=== PATIENT | female | born 1980 | race Caucasian/White ===

== ENCOUNTER → 2016-11-28 09:19 | Outpatient (CLI) | payer OTHER ==
[2013-05-31 06:22] VITALS: BMI 32.3
[~2016-11-28 09:19] MED LIST: AMBIEN10 MG PO; EFFEXOR37.5 MG PO; MOTRIN600 MG PO; PERCOCET 5/3251 TA1 PO; TOPAMAX25 MG PO
== END | disposition home or self-care (01) ==
LOC: D.MRI 09:19
DX: M25.511 Pain in right shoulder (principal)

== ENCOUNTER 2019-02-09 17:06 | Emergency (ER) | payer OTHER ==
[~2019-02-09] VITALS: Ht 160 cm; Wt 113.6 kg
[2019-02-09 17:11] VITALS: Ht 160 cm; Wt 113.6 kg
[2019-02-09] MEDS ORDERED: CARAFATE1 G PO (17:12)
[2019-02-09 17:35] LABS: BASOPHILS 0.3 % (0-2); EOSINOPHILS 2.9 % (0-7); HEMATOCRIT 37.9 % (36.0-48.0); HEMOGLOBIN 12.1 g/dL (12-16); IMMATURE GRANULOCYTES 0.2 % (0-5); LYMPHOCYTES 21.7 % (15-50); MCH 27.4 pg (26.0-34.0); MCHC 31.9 g/dL (31.0-37.0); MCV 85.9 fL (80.0-100.0); MEAN PLATELET VOLUME 10.3 fL (7.4-10.4); MONOCYTES 9.7 % (2-11); NEUTROPHILS 65.2 % (40-80); RBC 4.41 10x6/uL (4.00-5.40); WBC 11.6 10x3/uL (4.8-10.8)
[2019-02-09 17:38] LABS: PLATELET COUNT 341 10x3/uL (130-400)
[2019-02-09 17:51] LABS: CALC OSMOLALITY 281 mosm/kg (275-300); CHLORIDE - SERUM 104 mmol/L (98-107); CREATININE - SERUM 0.9 mg/dL (0.6-1.3); GLUCOSE 107 mg/dL (74-106); POTASSIUM - SERUM 3.9 mmol/L (3.5-5.1); SODIUM 141 mmol/L (136-145); UREA NITROGEN 14 mg/dL (7-18); eGFR NON AFRICAN AMERICAN 74 mL/min (90-120)
[2019-02-09 18:00] LABS: ALKALINE PHOSPHATASE 107 U/L (46-116); ALT (SGPT) 46 U/L (10-68); AMYLASE - SERUM 54 U/L (25-115); LIPASE 167 U/L (73-393); PROTEIN - SERUM 7.8 g/dL (6.4-8.2)
[2019-02-09 18:10] LABS: TROPONIN-I < 0.017 ng/mL (0.000-0.060)
[2019-02-09 20:10] LABS: APPEARANCE CLEAR (CLEAR); BILIRUBIN NEGATIVE (NEGATIVE); COLOR YELLOW (YELLOW); GLUCOSE NEGATIVE (NEGATIVE); KETONE NEGATIVE (NEGATIVE); NITRITE NEGATIVE (NEGATIVE); PROTEIN NEGATIVE (NEGATIVE); UROBILINOGEN NORMAL (NORMAL)
[2019-02-09] MEDS ORDERED: PHENERGAN25 M1 PO (20:30)
[2019-02-09] MEDS ORDERED: TORADOL10 MG PO (20:30)
[2019-02-09 20:59] VITALS: BP 135/80
== END 2019-02-09 20:58 | disposition home or self-care (01) ==
LOC: D.ER 17:06
PROVIDERS: Family Medicine
DX: R11.2 Nausea with vomiting, unspecified (principal); R10.9 Unspecified abdominal pain

== ENCOUNTER 2019-06-15 18:36 | Inpatient (IN) | payer OTHER ==
[~2019-06-15] VITALS: Ht 160 cm; Wt 112.1 kg
[~2019-06-15 18:36] MED LIST changes: +CARAFATE1 G PO; +PHENERGAN25 M1 PO; +TORADOL10 MG PO
[2019-06-15] MEDS ORDERED: ZITHROMAX250 MG (18:48)
[2019-06-15] MEDS ORDERED: PROAIR HFA8.5 G1 (18:48)
[2019-06-15] MEDS ORDERED: HCTZ25 MG PO (18:50)
[2019-06-15 19:20] LABS: BASOPHILS 0.3 % (0-2); EOSINOPHILS 1.8 % (0-7); HEMATOCRIT 40.3 % (36.0-48.0); HEMOGLOBIN 12.9 g/dL (12-16); IMMATURE GRANULOCYTES 0.2 % (0-5); LYMPHOCYTES 14.6 % (15-50); MCV 84.5 fL (80.0-100.0); MEAN PLATELET VOLUME 10.1 fL (7.4-10.4); MONOCYTES 11.2 % (2-11); NEUTROPHILS 71.9 % (40-80); PLATELET COUNT 328 10x3/uL (130-400); RBC 4.77 10x6/uL (4.00-5.40); RDW 15.3 % (11.5-14.5); WBC 11.5 10x3/uL (4.8-10.8)
[2019-06-15 19:31] LABS: APTT 24.5 SECONDS (22.8-39.4); INR 0.97 (0.85-1.17); PROTIME 12.9 SECONDS (11.6-15.0)
[2019-06-15 19:42] LABS: HCG SERUM NEGATIVE (NEGATIVE)
[2019-06-15 19:45] LABS: ALBUMIN 3.7 g/dL (3.4-5.0); ALKALINE PHOSPHATASE 128 U/L (30-120); ALT (SGPT) 41 U/L (10-68); CALC OSMOLALITY 265 mosm/kg (275-300); CALCIUM 9.2 mg/dL (8.5-10.1); CARBON DIOXIDE 29.1 mmol/L (21.0-32.0); CHLORIDE - SERUM 94 mmol/L (98-107); CKMB 0.6 U/L (0.0-3.6); CREATINE KINASE 121 UL (21-215); GLUCOSE 126 mg/dL (74-106); PRO BNP 40 pg/mL (0-125); PROTEIN - SERUM 8.4 g/dL (6.4-8.2); SODIUM 132 mmol/L (136-145); UREA NITROGEN 11 mg/dL (7-18); eGFR NON AFRICAN AMERICAN 65 mL/min (90-120)
[2019-06-15 19:47] LABS: TROPONIN-I < 0.017 ng/mL (0.000-0.060)
[2019-06-15 19:48] LABS: POTASSIUM - SERUM 2.5 mmol/L (3.5-5.1)
[2019-06-15 20:06] LABS: MONO NEGATIVE (NEGATIVE)
[2019-06-15 21:17] LABS: BACTERIA FEW /hpf (NEGATIVE); EPITHELIAL CELLS 0-5 /hpf (0-5); RED CELLS - URINE OCC /hpf (0-5); WHITE CELLS - URINE OCC /hpf (NEGATIVE)
[2019-06-15] MEDS ORDERED: CYMBALTA60 MG PO (22:20)
[2019-06-15] MEDS ORDERED: BUPROPION XL150 MG PO (22:21)
[2019-06-15] MEDS ORDERED: OMEPRAZOLE40 MG PO (22:21)
[2019-06-15] MEDS ORDERED: ATIVAN1 MG PO (22:22)
[2019-06-15 22:25] VITALS: BMI 39.4
[2019-06-16] VITALS: BP 118/65
[2019-06-16 04:00] VITALS: BP 124/57
--- NOTE | 2019-06-16 04:32 | NUR ---
NEW PIV STARTED IN LEFT HAND AT THIS TIME. PT PIV IN RIGHT FOREARM INFILTRATED.
[2019-06-16 06:21] LABS: T4 THYROXIN - FREE 1.13 ng/dL (0.76-1.46); THYROID STIMULATING HORMONE 1.85 uIU/mL (0.36-3.74)
[2019-06-16 09:11] VITALS: BP 123/87
--- NOTE | 2019-06-16 09:55 | NUR ---
SCD'S PLACED ON PT'S LEGS BILATERALLY.
[2019-06-16 12:10] LABS: BASOPHILS 0.3 % (0-2); HEMATOCRIT 35.8 % (36.0-48.0); HEMOGLOBIN 11.3 g/dL (12-16); IMMATURE GRANULOCYTES 0.3 % (0-5); LYMPHOCYTES 17.9 % (15-50); MCH 26.8 pg (26.0-34.0); MCHC 31.6 g/dL (31.0-37.0); MCV 84.8 fL (80.0-100.0); MEAN PLATELET VOLUME 9.8 fL (7.4-10.4); NEUTROPHILS 71.5 % (40-80); PLATELET COUNT 287 10x3/uL (130-400); RBC 4.22 10x6/uL (4.00-5.40); RDW 15.8 % (11.5-14.5)
[2019-06-16 12:33] LABS: CALCIUM 8.1 mg/dL (8.5-10.1); CARBON DIOXIDE 32.8 mmol/L (21.0-32.0); CHLORIDE - SERUM 99 mmol/L (98-107); CKMB 0.4 U/L (0.0-3.6); CREATINE KINASE 84 UL (21-215); CREATININE - SERUM 0.8 mg/dL (0.6-1.3); GLUCOSE 167 mg/dL (74-106); MAGNESIUM - SERUM 2.5 mg/dL (1.8-2.4); SODIUM 136 mmol/L (136-145); TROPONIN-I < 0.017 ng/mL (0.000-0.060); eGFR NON AFRICAN AMERICAN 85 mL/min (90-120)
[2019-06-16 12:35] LABS: CALC OSMOLALITY 273 mosm/kg (275-300); UREA NITROGEN 8 mg/dL (7-18)
[2019-06-16 12:37] LABS: POTASSIUM - SERUM 2.7 mmol/L (3.5-5.1)
--- NOTE | 2019-06-16 12:37 | NUR ---
LAB CALLED AND STATED PT'S POTASSIUM LEVEL WAS 2.7. I STATED TO THEM IT WAS TIMED AND WAS NOT GOING TO BE ACCURATE BECAUSE PT'S POTASSIUM LEVEL HAS NOT BEEN FULLY TREATED. THEY VERBALIZED UNDERSTANDING AND APOLOGIZED FOR DRAWING EARLY.
--- NOTE | 2019-06-16 13:08 | NUR ---
NOTIFIED SPENCER FERRELL THAT LAB DRES POTASSIUM THREE HOURS EARLY BEFORE SHE WAS DONE GETTING TREATED. SPENCER FERRELL GAVE NO FURTHER ORDERS AND VERBALIZED UNDERSTANDING.
[2019-06-16 16:51] VITALS: Ht 160 cm; Wt 112.1 kg
--- NOTE | 2019-06-16 17:08 | NUR ---
I have reviewed this patient and I concur with the Shift Assessment completed by the Licensed Practical Nurse today this shift.
[2019-06-16 17:12] VITALS: BP 111/51
[2019-06-16 17:54] LABS: CKMB 0.4 U/L (0.0-3.6); CREATINE KINASE 85 UL (21-215)
[2019-06-16 17:55] LABS: TROPONIN-I < 0.017 ng/mL (0.000-0.060)
--- NOTE | 2019-06-16 19:10 | NUR ---
REPORT RECEIVED, WILL CONTINUE POC. PATIENT IS AAOX4, LYING IN SEMI-FOWLERS POSITION. NO S/S OF DISTRESS OBSERVED, RR EVEN AND UNLAOBRED ON ROOM AIR. PIV TO LT HAND INFUSING NS@100ML/HR. PATIENT REQUESTING SHOWER. INVESTIGATOR INTERNAL AFFAIRS AT BEDSIDE PREPPING PATIENT. DC'D IV FOR SHOWER, WILL RECONNECT WHEN FINISHED. PATIENT DENIES FURTHER NEEDS AT THIS TIME. CL IN REACH, BED LOCKED AND LOWERED. WILL CTM.
[2019-06-16 20:00] VITALS: BP 134/67
[2019-06-16 22:36] LABS: CKMB 0.6 U/L (0.0-3.6); CREATINE KINASE 85 UL (21-215); TROPONIN-I < 0.017 ng/mL (0.000-0.060)
--- NOTE | 2019-06-16 23:09 | NUR ---
PATIENT REQUESTING CYMBALTA AND WELLBUTRIN BE RESTARTED. INFORMED DAYAMI CASTLE APN. WILL RESTART.
[2019-06-17] VITALS: BP 137/59
[2019-06-17 04:00] VITALS: BP 105/58
[2019-06-17 05:03] LABS: BASOPHILS 0.4 % (0-2); EOSINOPHILS 3.6 % (0-7); HEMATOCRIT 33.3 % (36.0-48.0); HEMOGLOBIN 10.3 g/dL (12-16); IMMATURE GRANULOCYTES 0.4 % (0-5); LYMPHOCYTES 25.3 % (15-50); MCH 26.9 pg (26.0-34.0); MCHC 30.9 g/dL (31.0-37.0); MONOCYTES 8.5 % (2-11); NEUTROPHILS 61.8 % (40-80); PLATELET COUNT 262 10x3/uL (130-400); RBC 3.83 10x6/uL (4.00-5.40); RDW 16.6 % (11.5-14.5); WBC 8.9 10x3/uL (4.8-10.8)
[2019-06-17 05:14] LABS: MCV 86.9 fL (80.0-100.0)
[2019-06-17 05:48] LABS: CALC OSMOLALITY 278 mosm/kg (275-300); CALCIUM 8.1 mg/dL (8.5-10.1); CARBON DIOXIDE 30.4 mmol/L (21.0-32.0); CHLORIDE - SERUM 104 mmol/L (98-107); CREATININE - SERUM 0.8 mg/dL (0.6-1.3); GLUCOSE 123 mg/dL (74-106); MAGNESIUM - SERUM 2.3 mg/dL (1.8-2.4); PHOSPHOROUS 2.5 mg/dL (2.5-4.9); POTASSIUM - SERUM 3.2 mmol/L (3.5-5.1); SODIUM 140 mmol/L (136-145); UREA NITROGEN 9 mg/dL (7-18); eGFR NON AFRICAN AMERICAN 85 mL/min (90-120)
[2019-06-17 08:10] VITALS: BP 138/73
[2019-06-17 09:09] LABS: THYROGLOBULIN ANTIBODY <1.0 IU/mL (0.0-0.9); THYROID PEROXIDASE ABS 12 IU/mL (0-34)
[2019-06-17 09:09] LABS: EBV - NUCLEAR ANTIGEN AB IGG >600.0 U/mL (0.0-17.9); EBV VIRAL CAPSID AB IGG >600.0 U/mL (0.0-17.9); EBV VIRAL CAPSID AB IGM <36.0 U/mL (0.0-35.9)
[2019-06-17 10:37] LABS: % SATURATION 8 % (15-55); IRON 26 ug/dl (35-150); TOTAL IRON BIND CAPACITY 320 ug/dl (260-445); UNSAT IRON BIND CAPACITY 294 ug/dl (150-375)
--- NOTE | 2019-06-17 13:35 | EC ---
PATIENT:NADYA GRIFFIN DATE OF SERVICE: 06/16/19 SEX: F MEDICAL RECORD: [id number] DATE OF : [birth year] LOCATION:D.M2 D.210 AGE OF PATIENT: 38 ADMISSION DATE: 06/16/19 REFERRING PHYSICIAN: INTERPRETING PHYSICIAN: NICKIE ROSENTHAL MD ECHOCARDIOGRAM REPORT ECHO CHARGES 4 ECHO COMPLETE Date: 06/16/19 CLINICAL DIAGNOSIS: SOB/EDEMA/PALPITATIONS ECHOCARDIOGRAPHIC MEASUREMENTS (adult normal given) AC root (d.<3.7cm) 3.2 cm LV Septum d (<1.2 cm> 1.1 cm Valve Excursion 2.1 cm LV Septum (systole) 1.5 cm Left Atria (s.<4.0cm> 4.0 cm LVPW d(<1.2cm) 1.1 cm RV (d.<2.3cm) 2.6 cm LVPW (sytole) 1.7 cm LV diastole(<5.6CM) 4.4 cm MV E-F(>70mm/sec) cm LV systole 2.8 cm LVOT Diameter 2.1 cm MV exc.(>10mm) cm Est.ejection fraction (50-75%) % DOPPLER: LVIT cm/sec A 51.0 cm/sec E 66.0 cm/sec LA cm/sec RVSP 19.0 mmHg LVOT 113 cm/sec AOP1/2T m/s Asc. Ao 155 cm/sec RVOT 64.0 cm/sec RA cm/sec PA 96.0 cm/sec AV Gradient Peak 9.6 mmHg AV Mean 5.5 mmHg AV Area 2.5 cm MV Gradient Peak 2.8 mmHg MV Mean 1.1 mmHg MV Area cm COMMENTS: Belt Conveyor Drier: 1 MIRIAM CONNER Jewelry Appraiser: 3 Dr. Rodas TAPE# PACS Pericardial Effusion N DATE OF SERVICE: Adequate 2D, color flow imaging, spectral Doppler, and M-Mode. No LVH. LV internal dimension is normal. Wall motion is normal. EF greater than or equal to 55%. Aortic valve is tricuspid. No evidence of stenosis by Doppler interrogation. Left atrium is normal. Mitral valve shows no prolapse. Trivial MR. Right-sided chambers are grossly normal. Trivial TR. TRANSINT:[id number] Voice Confirmation ID: [id number] DOCUMENT ID: [id number] ECHOCARDIOGRAM REPORT [id number] NADYA GRIFFIN GREGORY A MD at 1335 CC: [id number] DICTATION DATE: 06/17/19813 RESIDENTIAL MONITOR: 06/17/19 1114 ADM IN [place] [id number] [place] [id number]
[2019-06-17 14:01] VITALS: BP 125/71
== END 2019-06-17 17:37 | disposition home or self-care (01) | DRG 641 ==
LOC: D.ER 18:36 → D.M2 20:57 → OBSVTIME 20:57 → D.M2 06-16 11:45
PROVIDERS: Emergency Medicine; Family Medicine; ADMIT Internal Medicine Nephrology; ATTEND Internal Medicine Nephrology
DX: E87.1 Hypo-osmolality and hyponatremia (principal); E87.6 Hypokalemia; E05.90 Thyrotoxicosis, unspecified without thyrotoxic crisis or storm; R94.31 Abnormal electrocardiogram [ECG] [EKG]; F41.8 Other specified anxiety disorders; I10 Essential (primary) hypertension; K21.9 Gastro-esophageal reflux disease without esophagitis; G43.909 Migraine, unspecified, not intractable, without status migrainosus